=== PATIENT | male | born 1985 | race Caucasian/White ===

== ENCOUNTER 2017-04-02 08:16 | Emergency (ER) | payer OTHER ==
[~2017-04-02] VITALS: Ht 172.7 cm; Wt 88.0 kg
[2017-04-02] MEDS ORDERED: LIDOCAINE 1%, 20ML ONE (08:30)
[2017-04-02] MEDS ORDERED: BUPIVACAINE 0.25% ONE (08:33)
[2017-04-02] MEDS ORDERED: DIPH,PERTUSS(ACELL),TET VAC/PF 0.5 ML IM-VACC ONE ×2 (08:33→09:00)
[2017-04-02] MEDS ORDERED: BUPIVACAINE/PF 0.25% INFIL ONE (09:00)
[2017-04-02] MEDS ORDERED: LIDOCAINE 1%, 20ML INFIL ONE (09:00)
[2017-04-02] MEDS ORDERED: CEFAZOLIN 1,000 MG IM ONE (10:30)
[2017-04-02] MEDS ORDERED: CEFAZOLIN 1,000 MG ONE (10:52)
[2017-04-02 11:29] VITALS: BP 160/80
== END 2017-04-02 11:31 | disposition home or self-care (01) ==
LOC: ED 11:25
DX: S61.211A Laceration without foreign body of left index finger without damage to nail, initial encounter (principal); Z23 Encounter for immunization; W23.0XXA Caught, crushed, jammed, or pinched between moving objects, initial encounter; Y93.89 Activity, other specified; Y99.0 Civilian activity done for income or pay; Y92.69 Other specified industrial and construction area as the place of occurrence of the external cause
CPT/HCPCS: 13131; 73140; 90471; 90715; 96372; 99285; J0690; J3490